=== PATIENT | male | born 1930 | race Caucasian/White ===

== ENCOUNTER 2018-07-20 09:58 | Inpatient (IN) | payer MEDICARE, OTHER ==
[2018-07-20] MEDS ORDERED: NS 0.9% 1000 ML** 1,000 ML IV ONE (10:09)
--- NOTE | 2018-07-20 10:11 | ED ---
Syncope/Near Syncope - HPI Summary HPI Summary: Patient is a 87 y/o M presenting to ED via EMS with complaints of syncopal episode, SOB this morning. Patient was at dining table with when he had sudden onset of SOB, patient had subsequent syncopal episode. had helped the patient to the ground. EMS was called, who states that they were told that the patient was unresponsive. Upon EMS arrival, patient was still minimally responsive with blue fingers and SPO2 74%. Pt placed on NRB at 15L oxygen. BP was 97/60, patient was given fluids. He was bradycardic with HR in 50s and EMS claims prolonged QT on 12 lead. In room, patient is now A&Ox3, endorses SOB, states that when he woke up this morning, he was feeling weak and gaseous. Recent cough is reported as well. No chest pain, no back pain, no abdominal pain is reported. No PMHx of cardiac disease, kidney problems or stroke. PMHx of gout and prostate cancer. He had chemotherapy 9-10 years ago, cancer is reported to be in remission. No FMHx of aneurysms or blood clots. NKDA. Patient went to [facility] for routine check- up recently and a new onset RBBB was noted. Patient is not on blood thinners. Fever, chills, erythema of eyes, sore throat, vomiting, nausea, dysuria, hematuria, myalgia, edema, rash and dizziness are not reported. On triage, pain is rated 0/10, nothing is noted to aggravate/alleviate Sx. Home medications and allergies are reviewed. - History Of Current Complaint Time Seen by Provider: 07/20/18 10:00 Hx Obtained From: Patient, EMS Onset/Duration: Sudden Onset, Still Present - SOB, Resolved - A&Ox3 at present Timing: Constant - SOB Context: Witnessed Activity At Onset: At Rest - sitting at dining table Aggravating Factor(s): Nothing Alleviating Factor(s): Nothing Associated Signs And Symptoms: Shortness Of Breath, Other - Patient endorses fatigue, recent cough, gassy. Fever, chills, erythema of eyes, sore throat, vomiting, nausea, dysuria, hematuria, myalgia, edema, rash and dizziness are not reported. - Allergies/Home Medications Allergies/Adverse Reactions: Allergies Allergy/AdvReac Type Severity Reaction Status Date / Time No Known Allergies Allergy Verified 07/20/18 10:09 Home Medications: Home Medications Allopurinol TAB* [Zyloprim 100 MG TAB*] 100 mg PO BID 07/20/18 [History Confirmed 07/20/18] Amoxicillin PO (*) [Amoxicillin 500 MG CAP*] 2,000 mg PO ONCE 07/20/18 [History Confirmed 07/20/18] Aspirin EC TAB* [Ecotrin EC Low Dose 81 MG*] 81 mg PO DAILY 07/20/18 [History Confirmed 07/20/18] Ergocalciferol (Vitamin D2) [Vitamin D2] 50,000 unit PO WEEKLY 07/20/18 [ History Confirmed 07/20/18] Finasteride TAB* [Proscar TAB*] 5 mg PO DAILY 07/20/18 [History Confirmed ] Tamsulosin CAP* [Flomax CAP*] 0.4 mg PO DAILY 07/20/18 [History Confirmed ] PMH/Surg Hx/FS Hx/Imm Hx Musculoskeletal History: Reports: Hx Gout Sensory History: Denies: Hx Legally Blind, Hx Deafness Opthamlomology History: Denies: Hx Legally Blind EENT History: Denies: Hx Deafness - Cancer History Cancer Type, Location and Year: prostate cancer Hx Chemotherapy: Yes - Family History Known Family History: Negative: Blood Disorder - no FMHx of blood clots, aneurysms - Social History Alcohol Use: Rare Substance Use Type: Reports: None Smoking Status (MU): Former Smoker Review of Systems Positive: Fatigue. Negative: Fever, Chills Negative: Erythema Negative: Sore Throat Negative: Chest Pain Positive: Shortness Of Breath, Cough Gastrointestinal: Other - POSITIVE - GASSEOUS Negative: Abdominal Pain, Vomiting, Nausea Negative: dysuria, hematuria Musculoskeletal: Other - NEGATIVE - BACK PAIN Negative: Myalgia, Edema Negative: Rash Neurological: Other - NEGATIVE - LIGHT-HEADEDNESS Positive: Syncope All Other Systems Reviewed And Are Negative: Yes Physical Exam - Summary Physical Exam Summary: Constitutional: Well-developed, Well-nourished, Alert. (-) Distressed Skin: Warm, Dry HENT: Normocephalic; Atraumatic Eyes: Conjunctiva normal Neck: Musculoskeletal ROM normal neck. (-) JVD, (-) Stridor, (-) Tracheal deviation Cardio: Rhythm regular, rate normal, Heart sounds normal; Intact distal pulses; The pedal pulses are 2+ and symmetric. Radial pulses are 2+ and symmetric. (-) Murmur Pulmonary/Chest wall: Effort normal. (-) Respiratory distress, (-) Wheezes, (-) Rales (+) right lower lung crackles, tachypneic. Abd: Soft, (-) epigastric tenderness, (-) Distension, (-) Guarding, (-) Rebound Musculoskeletal: (-) Edema Lymph: (-) Cervical adenopathy Neuro: Alert, Oriented x3, GCS 15 Psych: Mood and affect Normal Triage Information Reviewed: Yes Vital Signs On Initial Exam: Initial Vitals Temp Pulse Resp BP Pulse Ox 96.3 F 62 24 112/68 98 07/20/18 10:05 07/20/18 10:05 07/20/18 10:05 07/20/18 10:05 07/20/18 10:05 Vital Signs Reviewed: Yes Diagnostics - Laboratory Result Diagrams: 07/20/18 10:22 07/20/18 10:22 Lab Statement: Any lab studies that have been ordered have been reviewed, and results considered in the medical decision making process. - Radiology CHEST X-RAY Radiology Interpretation Completed By: Radiologist Summary of Radiographic Findings: IMPRESSION: NO ACTIVE CARDIOPULMONARY DISEASE. THIS REPORT WAS REVIEWED BY ED PHYSICIAN. - CT brain ct CT Interpretation Completed By: Radiologist Summary of CT Findings: BRAIN CT IMPRESSION: No intracranial mass or hemorrhage. Large arachnoid cyst in the posterior. fossa with age-appropriate atrophy. This report was reviewed by ED physician. cta chest/thorax CT Interpretation Completed By: Radiologist Summary of CT Findings: CTA CHEST/THORAX IMPRESSION: Multiple filling defects are noted in the lower lobe pulmonary arteries. extending into the segmental arteries as well as in the right upper lobe and peripheral. left upper lobe filling defects are noted consistent with large multiple pulmonary emboli. Ectasia of the ascending aorta is noted. This report was reviewed by ED physician. - EKG 1010 Cardiac Rate: NL - rate of 60 BPM EKG Rhythm: Sinus Rhythm Summary of EKG Findings: EKG showed sinus rhythm with rate of 60 BPM, TWI V4-V6 , no STEMI. Course/Dx Course Of Treatment: Patient is a 87 y/o M presenting to ED via EMS with complaints of syncopal episode, SOB this morning. Patient was at dining table with when he had sudden onset of SOB, patient had subsequent syncopal episode. had helped the patient to the ground. EMS was called, who states that they were told that the patient was unresponsive. Upon EMS arrival, patient was still minimally responsive with blue fingers and SPO2 74%. Pt placed on NRB at 15L oxygen. BP was 97/60, patient was given fluids. He was bradycardic with HR in 50s and EMS claims prolonged QT on 12 lead. In room, patient is now A&Ox3, endorses SOB, states that when he woke up this morning, he was feeling weak and gaseous. Recent cough is reported as well. No chest pain , no back pain, no abdominal pain is reported. No PMHx of cardiac disease, kidney problems or stroke. PMHx of gout and prostate cancer. He had chemotherapy 9-10 years ago, cancer is reported to be in remission. No FMHx of aneurysms or blood clots. NKDA. Patient went to [facility] for routine check- up recently and a new onset RBBB was noted. Patient is not on blood thinners. On physical exam, right lower lung crackles, tachypneic. EKG showed sinus rhythm with rate of 60 BPM, TWI V4-V6, no STEMI. Labs showed MCV 102, MCH 35, Plt Count 101, carbon dioxide 21, BUN 31, Creatinine 1.61, glucose 187, lactic acid 2.1, total bilirubin 2.6, AST 71, ALT 67, trop 0.03, BNP 393, total protein 5.9. During ED course, patient received fluids, heparin vial 5800 units IV, and Heparin Drip, 22026 units in 500 ml IV. CXR. IMPRESSION: NO ACTIVE CARDIOPULMONARY DISEASE. BRAIN CT IMPRESSION: No intracranial mass or hemorrhage. Large arachnoid cyst in the posterior. fossa with age-appropriate atrophy. CTA CHEST/THORAX IMPRESSION: Multiple filling defects are noted in the lower lobe pulmonary arteries. extending into the segmental arteries as well as in the right upper lobe and peripheral. left upper lobe filling defects are noted consistent with large multiple pulmonary emboli. Ectasia of the ascending aorta is noted. No right heart strain is suspected as there is no radiographic evidence of such. LOC is suspected to be hypoxia-related as patient's face was cyanotic per EMS. Patient's case was discussed with Dr. Crump, Dr. Crump accepts for admission. - Diagnoses Differential Diagnosis/HQI/PQRI: Positive: Myocardial Infarction, Pulmonary Embolism, Other - PNA, CHF, arrhythmia Provider Diagnoses: Pulmonary embolism - Physician Notifications Discussed Care of Patient With: Kimberly Crump Time Discussed With Above Provider: 11:47 Instructed by Provider To: Other - 1139 - Dr. Urrutia communicates results of CTA chest/thorax. 1147 - Patient's case was discussed with Dr. Crump, Dr. Crump accepts for admission. - Critical Care Time Critical Care Time: 30-74 min - 45 minutes Discharge - Sign-Out/Discharge Documenting (check all that apply): Patient Departure - admit - Discharge Plan Condition: Good Disposition: ADMITTED TO [facility] Referrals: Zenon Epperson MD [Primary Care Provider] - - Attestation Statements Document Initiated by Scribe: Yes Documenting Scribe: KERVIN CELAYA Provider For Whom Scribe is Documenting (Include Credential): JAHAIRA WHALEY MD Scribe Attestation: I, KERVIN CELAYA, scribed for JAHAIRA WHALEY MD on 07/20/18 at 1240. Status of Scribe Document: Ready
[2018-07-20 10:41] LABS: ABS Basophils 0 10^3/ul (0-0.2); ABS Eosinophils 0.2 10^3/ul (0-0.6); ABS Monocytes 0.4 10^3/ul (0-0.8); ABS Neutrophils 7.6 10^3/ul (1.5-7.7); ABS Nucleated RBC 0 10^3/ul; Eosinophil % 2.2 %; Hematocrit 42 % (42-52); Hemoglobin 14.4 g/dl (14.0-18.0); Lymphocyte % 10.5 %; Mean Corpuscular HGB Conc 34 g/dl (31-36); Mean Corpuscular Hemoglobin 35 pg (27-31); Mean Corpuscular Volume 102 fL (80-94); Mean Platelet Volume 10.1 fL (7.4-10.4); Nucleated Red Blood Cells % 0.1; Platelet Count 101 10^3/ul (150-450); Red Blood Count 4.11 10^6/ul (4.00-5.40); Red Cell Distribution Width 15 % (10.5-15); White Blood Count 9.1 10^3/ul (3.5-10.8)
[2018-07-20 11:00] LABS: Troponin I 0.03 ng/mL (<0.04)
[2018-07-20 11:04] LABS: Albumin 3.9 g/dL (3.2-5.2); BUN/Creatinine Ratio 19.3 (8-20); EGFR African American 49.6 (>60); Potassium 3.7 mmol/L (3.5-5.0); Total Bilirubin 2.6 mg/dL (0.2-1.0); Total Protein 5.9 g/dL (6.4-8.9)
[2018-07-20] MEDS ORDERED: Iodixanol* (CONTRAST) 320 MG/ML 100 ML SDV IV ONE (11:14)
[2018-07-20] MEDS: Heparin VIAL(*) 5000 UNITS/ML VIAL (FIVE THOUSAND) IV SCH (12:18)
[2018-07-20] MEDS: Heparin DRIP 25,000 UNITS(*) 25,000 UNITS/500 ML BAG IV SCH (12:20)
[2018-07-20 12:27] LABS: Activated Partial Thrombo Time 26.1 seconds (26.0-36.3); INR 1.02 (0.77-1.02)
[2018-07-20] MEDS ORDERED: Acetaminophen TAB* 325 MG PO PRN (12:58)
--- NOTE | 2018-07-20 15:17 | HP ---
HISTORY AND PHYSICAL: DATE OF ADMISSION: 07/20/18 TIME OF ADMISSION: 1:30 p.m. PRIMARY CARE PHYSICIAN: Dr. Jones in [place]. ONCOLOGIST: Dr. Phillips in [place]. MACHINES TECHNICIAN: Dr. Mahoney in [place]. UROLOGIST: Dr. Hayes in [place]. PLUSH WEAVER: Dr. Bryson in [place]. CHIEF COMPLAINT: Syncope. HISTORY OF PRESENT ILLNESS: This is an 87-year-old man with history of non- Hodgkin's lymphoma in remission and BPH who presents to the emergency department this morning after an episode of syncope at breakfast. He has little recollection of the series of events, so his , Stacy, helps provide the history. Mr. Murillo explains that he had been feeling short of breath and weak over the past several weeks and even months, but that it was inconsistent and often went away with rest, so he did not think much of that. Then, this morning, he noted that he was more short of breath when he woke up and when he got to the table this morning for breakfast, his reports that he had gotten up to get the orange juice out of the fridge and sat back down, and she was sitting beside him when she noticed that he started to lean over in his armchair and his eyes were closed and his mouth was open, and she tried to talk to him and he was not responding. She could not arouse him, so she called EMS, who instructed her to put him on the floor, which she lowered him to the ground and she estimates he was unconscious for approximately 5 to 10 minutes and she witnessed no shaking or seizure-like activity, no incontinence or tongue biting. EMS arrived and reported that his pulse ox was in the 70s, they put oxygen on and loaded him into the ambulance, at which point Mr. Murillo recalls waking up and feeling okay. He had no specific complaints at that time. In the emergency department, a CTA showed bilateral PE, so we were asked to evaluate for admission. PAST MEDICAL HISTORY: 1. BPH. 2. Non-Hodgkin's lymphoma in 2008 which is reportedly in remission. He underwent chemotherapy at that time. 3. 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 PAST SURGICAL HISTORY: He has history of 2 hip replacements and cataract surgery. HOME MEDICATIONS: 1. Amoxicillin p.r.n. dental visits. 2. Aspirin 81 mg daily, this is reportedly for prophylaxis. 3. Flomax 0.4 mg daily. 4. Allopurinol 100 mg b.i.d. 5. Vitamin D 50,000 units weekly. 6. Finasteride 5 mg daily. SOCIAL HISTORY: He lives in [place] with his . He exercises regularly at the [employer]. He smokes cigars occasionally. He drinks 1 alcoholic beverage per day. His healthcare proxy is his , Stacy. REVIEW OF SYSTEMS: He notes dyspnea on exertion and shortness of breath over the last month. No chest pain. He does note occasional lightheadedness with exertion. He denies melena, hematochezia, abdominal pain, headache. He always has blurry vision in his right eye due to a retinal artery occlusion, for which he is getting Avastin injections and this is unchanged. He denies any recent long trips. Their last trip was in May when they took a bus to [facility], which was approximately a [address]. He does have a history of non-Hodgkin's lymphoma, but reports that it is in remission and he sees oncology yearly for followup. He has history of BPH, but no other history of malignancy. PHYSICAL EXAMINATION GENERAL: Alert, elderly man in no distress. He occasionally purses his lips to breathe. VITAL SIGNS: Temperature 96.3, heart rate 62, respiratory rate 24, pulse ox 98 % on 2 L, blood pressure 112/68. HEENT: Pupils are equal, round, and reactive to light. Oral mucosa is moist with no pharyngeal exudates or erythema. NECK: JVP at 8 cm. No cervical or supraclavicular lymphadenopathy. CHEST: He is in a regular rate and rhythm. He does have a systolic murmur at the right upper sternal border. His PMI is nondisplaced. He has a port on the left chest wall. LUNGS: Clear bilaterally. ABDOMEN: Soft, nontender, nondistended. No guarding or rebound. EXTREMITIES: His hands are cool and discolored. He and his say this is baseline. His calves have no tenderness or swelling. His DP pulses are 2+ bilaterally. DIAGNOSTIC STUDIES/LAB DATA: White blood cells 9.1, hemoglobin 14.4, platelets 101. INR 1.02. Sodium 140, potassium 3.7, chloride 110, bicarb 21, BUN 31, creatinine 1.61 with no baseline, glucose 187, lactate 2.1. Total bilirubin 2.6 , AST 71, ALT 67. BNP 393, troponin 0.03. Imaging: A chest and thorax CTA shows multiple filling defects in the lower lobe pulmonary arteries extending into the segmental arteries as well as in the right upper lobe and peripheral left upper lobe, filling defects are noted consistent with large multiple pulmonary emboli. A brain CT shows no intracranial mass or hemorrhage with a large arachnoid cyst in the posterior fossa with age-appropriate atrophy. An EKG shows sinus bradycardia at 60 with left axis deviation. Q waves in III and aVF. T-wave inversions in V4, V5, and V6. Chest x-ray shows no active cardiopulmonary disease. ASSESSMENT AND PLAN: An 87-year-old man with history of remote non-Hodgkin's lymphoma in remission and benign prostatic hypertrophy who presents to the emergency department with an episode of syncope, was found to be hypoxic and have bilateral pulmonary embolisms. 1. Bilateral pulmonary embolisms. He has been started on a heparin drip in the emergency department, which I agree with and am continuing. He will have serial PTTs until a therapeutic anticoagulation is reached. I am checking a transthoracic echocardiogram to evaluate for right heart strain, trending his troponins to also evaluate severity of the pulmonary embolism. He is currently hemodynamically stable and has an oxygen requirement of only 2 L. The etiology of these pulmonary embolisms is the major question as he has history of lymphoma , but is reportedly in remission. I am requesting oncology records from [place]. He also says he has had a colonoscopy just a few years ago that was normal and he has never had abnormal colonoscopies. He does have history of benign prostatic hypertrophy, so I am adding on a PSA. He does not have any history of immobility and in fact, he is quite active. I am checking lower extremity Dopplers to evaluate for remaining burden of disease. We will have to see where his creatinine ends up as I am not sure if this is an acute kidney injury or chronic kidney disease before I re-choose an appropriate anticoagulant residential. I discussed bleeding risk with him and his and they understand the risk, which at this point is outweighed by the benefit of anticoagulating these bilateral pulmonary embolisms. 2. Syncope. The differential includes right heart failure versus hypoxia. I have a low suspicion for seizure given the description of the syncope. His oxygenation is now resolved and I am checking an echocardiogram to evaluate right heart strain. 3. Acute kidney injury versus chronic kidney disease. We will try to get records and see if this is acute or chronic. He is getting volume resuscitation given his syncope anyway and we will recheck his creatinine tomorrow. 4. Elevated LFTs. He has no GI symptoms and no history of hepatic disease. It is possible he had some hypotension related to syncope that is causing a mild elevation in his transaminases, or he may also be in right heart failure causing this elevation. He also has thrombocytopenia, so I will have a low threshold to check a right upper quadrant ultrasound. 5. Elevated glucose. He has no history of diabetes and I suspect this is related to a stress response, but I am adding on A1c. 6. Elevated lactate, likely related to syncope and poor tissue perfusion. Recheck in a few hours after volume resuscitation. 7. DVT prophylaxis. He is on therapeutic anticoagulation. 8. Diet. Regular unrestricted diet. 9. Activity. Bedrest. 10. Disposition. Admit to the ICU. [id number]/[facility] #: [id number] JULIAN
[2018-07-20] MEDS ORDERED: NS 0.9% 1000 ML** 1,000 ML IV SCH (18:30)
[2018-07-20] MEDS: Allopurinol TAB* 100 MG PO SCH (19:53)
[2018-07-21 05:21] LABS: Albumin 3.2 g/dL (3.2-5.2); BUN/Creatinine Ratio 23.7 (8-20); Calcium 7.4 mg/dL (8.6-10.3); EGFR African American 62.9 (>60); Globulin 1.6 g/dL (2-4); Indirect Bilirubin 1.5 mg/dL (0.3-1.0); Potassium 3.8 mmol/L (3.5-5.0); Total Bilirubin 1.8 mg/dL (0.2-1.0); Total Protein 4.8 g/dL (6.4-8.9)
[2018-07-21 05:25] LABS: ABS Basophils 0 10^3/ul (0-0.2); ABS Eosinophils 0.1 10^3/ul (0-0.6); ABS Lymphocytes 0.8 10^3/ul (1.0-4.8); ABS Monocytes 0.6 10^3/ul (0-0.8); ABS Neutrophils 4.3 10^3/ul (1.5-7.7); ABS Nucleated RBC 0 10^3/ul; Hematocrit 36 % (42-52); Hemoglobin 12.2 g/dl (14.0-18.0); Lymphocyte % 13.3 %; Mean Corpuscular HGB Conc 34 g/dl (31-36); Mean Corpuscular Hemoglobin 35 pg (27-31); Mean Corpuscular Volume 104 fL (80-94); Mean Platelet Volume 10.4 fL (7.4-10.4); Nucleated Red Blood Cells % 0; Platelet Count 93 10^3/ul (150-450); Red Blood Count 3.48 10^6/ul (4.00-5.40); Red Cell Distribution Width 15 % (10.5-15); White Blood Count 5.8 10^3/ul (3.5-10.8)
[2018-07-21] MEDS: Allopurinol TAB* 100 MG PO SCH ×2 (08:48→20:14)
[2018-07-21] MEDS: Finasteride TAB* 5 MG PO SCH (08:49)
[2018-07-21] MEDS ORDERED: Perflutren Lipid Microsphere* 3 ML VIAL ONE (09:38)
--- NOTE | 2018-07-21 12:39 | ECHO ---
Patient: ALONDRA SPARROW [facility] Rec#: [id number] : 1930 Date: 07/21/2018 Age: 87y Height: 183 cm / 72.0 in Weight: 77 kg / 169.7 lbs Sex: M BSA: 1.99 Room#: ICU 12 Admit Date#: 07/20/2018 Type: Inpatient Referring: Kimberly Crump MD Reading: Rika Campuzano MD Field Ring Assembler: Jina Martini,LITA,RDMS CC[facility] Tr[facility]ch[facility] Indication: PE BP: 116/79 HR: 52 Rhythm: NSR with PVCs Findings History: Non-Hodgkins lymphoma, chemotherapy, renal artery occlusion Technical Comments: The study quality is poor. The study is technically limited due to poor acoustic windows. Left Ventricle: The left ventricular chamber size is normal. Mild concentric left ventricular hypertrophy is observed. Basal interventricular septum shows moderate thickening. The estimated ejection fraction is 25-30%. globally. There is septal flattening of the interventricular septum consistent with right ventricular volume or pressure overload. The assessment of diastolic function is non-diagnostic. Left Atrium: The left atrium is moderately dilated. Right Ventricle: The right ventricle is moderately dilated. The right ventricular global systolic function is severely reduced. Right Atrium: The right atrium is moderately dilated. Aortic Valve: The aortic valve is trileaflet. The aortic valve leaflets are moderately thickened. There is mild to moderate aortic regurgitation. There is no evidence of aortic stenosis. Mitral Valve: There is mitral annular calcification. The mitral valve leaflets are mildly thickened. There is a trace of mitral regurgitation. There is no evidence of mitral stenosis. Tricuspid Valve: The tricuspid valve leaflets are normal. There is trace tricuspid regurgitation. There is evidence of borderline pulmonary hypertension. Pulmonic Valve: The pulmonic valve structure is not well visualized. There is no evidence of pulmonic regurgitation. Pericardium: There is no significant pericardial effusion. Aorta: There is moderate dilatation of the ascending aorta. There is no dilatation of the aortic arch. There is moderate dilatation of the aortic root. Pulmonary Artery: The main pulmonary artery is not well visualized. Venous: The inferior vena cava is not visualized. Contrast: Definity was used to optimize study. A total of 4 ml was used. Summary: There was not any prior study for comparison. Conclusions The left ventricular chamber size is normal. Mild concentric left ventricular hypertrophy is observed. Basal interventricular septum shows moderate thickening. The estimated ejection fraction is 25-30%. globally. There is septal flattening of the interventricular septum consistent with right ventricular volume or pressure overload. The assessment of diastolic function is non-diagnostic. The left atrium is moderately dilated. The right atrium is moderately dilated. There is mild to moderate aortic regurgitation. There is a trace of mitral regurgitation. There is trace tricuspid regurgitation. There is moderate dilatation of the ascending aorta. There is moderate dilatation of the aortic root. Measurements Name Value Normal Range RVIDd (AP) 2D 3.2 cm (0.9 - 2.6) RVDdMajor (2D) 4.8 cm (2.2 - 4.4) RAd ISD 4CH 5.6 cm (3.4 - 4.9) RA (A4C)W 5.2 cm (2.9 - 4.6) IVSd (2D) 1.5 cm (0.6 - 1) LVPWd (2D) 1 cm (0.6 - 1) LVIDd (2D) 4.5 cm (3.6 - 5.4) LVIDs (2D) 2.9 cm - LV FS (2D) 36 % (25 - 45) Aortic Annulus 2 cm (1.4 - 2.6) Ao root diameter (2D) 3.9 cm (2.1 - 3.5) Ascending Ao 3.9 cm (2.1 - 3.4) Aortic arch 3.1 cm (1.8 - 3.4) LA dimension (AP) 2D 4 cm (2.3 - 3.8) LAd ISD 4CH 6.1 cm (2.9 - 5.3) LA ISD 4CH W 5 cm (2.5 - 4.5) Name Value Normal Range MV E-wave Vmax 0.3 m/sec - MV deceleration time 250 msec - MV A-wave Vmax 1 m/sec - MV E:A ratio 0.3 ratio - LV septal e' Vmax 0.04 m/sec - LV lateral e' Vmax 0.03 m/sec - LV E:e' septal ratio 8 ratio - LV E:e' lateral ratio 10 ratio - Name Value Normal Range TR Vmax 2.5 m/sec - TR peak gradient 25 mmHg - RAP 8 mmHg - RVSP 33 mmHg - Name Value Normal Range PV Vmax 0.3 m/sec - PV peak gradient 0.4 mmHg -
--- NOTE | 2018-07-21 13:47 | PN ---
Hospitalist Progress Note Date of Service: 07/21/[address] Murillo's oncologist Dr. Phillips. I explained his case with DVTs/PEs and confirmed with her that his lymphoma is in remission as of March 2018, when she last saw him. She confirms this and has a low suspicion for recurrence but say she will see him soon after discharge and will address this with them and work him up for recurrence. She also reviewed his last TTE in April, which showed an ef of 55%
--- NOTE | 2018-07-21 18:06 | PN ---
Subjective Date of Service: 07/21/18 Interval History: Mr. Murillo is feeling "okay." He admits he got short of breath when he transferred from the bed from the ICU to the bed on the floor. He is not short of breath at rest, but I do note that he stops to catch his breath several times when he is talking. I spoke with his oncologist this morning--please see my prior note. His is here visiting. Objective Active Medications: Acetaminophen (Tylenol Tab*) 650 mg PO Q4H PRN PRN Reason: FEVER/PAIN Allopurinol (Zyloprim Tab*) 100 mg PO BID [facility] Last Admin: 07/21/18 08:48 Dose: 100 mg Ergocalciferol (Drisdol Cap*) 50,000 unit PO Th@0900 [facility] Finasteride (Proscar Tab*) 5 mg PO DAILY [facility] Last Admin: 07/21/18 08:49 Dose: 5 mg Heparin Sodium (Porcine) (Heparin Vial(*)) 0 units IV .PER PROTOCOL [facility]; Protocol Last Admin: 07/20/18 12:18 Dose: 5,800 units Heparin Sodium/Dextrose (Heparin Drip 25,000 Units(*)) 25,000 units in 500 mls @ 0 mls/hr IV PER RATE [facility]; Protocol Last Admin: 07/20/18 12:20 Dose: 28 mls/hr Lisinopril (Prinivil Tab*) 2.5 mg PO DAILY [facility] Metoprolol Tartrate (Lopressor Tab*) 12.5 mg PO DAILY [facility] Vital Signs - 8 hr 07/21/18 07/21/18 07/21/18 10:01 10:43 10:50 Temperature 97.2 F 97.2 F Pulse Rate 56 31 63 Respiratory 20 20 20 Rate Blood Pressure 122/79 134/74 134/74 (mmHg) O2 Sat by Pulse 92 100 100 Oximetry Oxygen Devices in Use Now: None Appearance: alert, occasionally gets short of breath with speaking, no distress Eyes: No Scleral Icterus Ears/Nose/Mouth/Throat: NL Teeth, Lips, Gums Neck: - - JVP 14cm Respiratory: Symmetrical Chest Expansion and Respiratory Effort, Clear to Auscultation Cardiovascular: - - systolic murmur RUSB Abdominal: NL Sounds; No Tenderness; No Distention Lymphatic: No Cervical Adenopathy Extremities: No Edema Skin: No Rash or Ulcers Neurological: Alert and Oriented x 3 Result Diagrams: 07/21/18 04:50 07/21/18 04:50 Microbiology and Other Data: Microbiology 07/20/18 10:22 Aerobic Blood Culture - Preliminary Blood Venous No Growth Day 1 Anaerobic Blood Culture - Preliminary No Growth Day 1 07/20/18 10:30 Aerobic Blood Culture - Preliminary Blood Venous No Growth Day 1 Anaerobic Blood Culture - Preliminary No Growth Day 1 07/20/18 15:20 Nasal Screen MRSA (PCR) - Final Nasal Mrsa Not Detected Assess/Plan/Problems-Billing Assessment: - Patient Problems (1) Pulmonary emboli Current Visit: Yes Status: Acute Code(s): I26.99 - OTHER PULMONARY EMBOLISM WITHOUT ACUTE COR PULMONALE SNOMED Code(s): 49453095 Comment: The etiology of this is most concerning for an occult lymphoma recurrence. I have discussed this with his oncologist and she will see him in follow up and arrange for further work up. continue heparin for now until a plan is decided upon for LV dysfunction--I wonder if he should have a LHC for eval. Onc recommends Lovenox upon discharge since malignancy-associated PE is a possibility (2) Cor pulmonale Current Visit: Yes Status: Acute Code(s): I27.81 - COR PULMONALE (CHRONIC) SNOMED Code(s): 84060288 Comment: stop IVF now (3) Acute systolic (congestive) heart failure Current Visit: Yes Status: Acute Code(s): I50.21 - ACUTE SYSTOLIC ( CONGESTIVE) HEART FAILURE SNOMED Code(s): 528022305 Comment: the etiology of this is unclear and I have consulted cardiology-- will likely need bb, BERT, statin, etc but will await their formal recommendation his ef was 55% in April may also need ischemic eval; appreciate cardiology input (4) Acute DVT (deep venous thrombosis) Current Visit: Yes Status: Acute Code(s): I82.409 - ACUTE EMBOLISM AND THOMBOS UNSP DEEP VN UNSP LOWER EXTREMITY SNOMED Code(s): 769740851343901 Comment: anticoagulation as above; again raises question of recurrence of malignancy (5) History of lymphoma Current Visit: Yes Status: Acute Code(s): Z85.79 - PRSNL HX OF MALIG NEOPLM OF LYMPHOID, HEMATPOETC & REL TISS SNOMED Code(s): 936572907 Comment: needs close onc follow up
[2018-07-21] MEDS: Lisinopril TAB* 5 MG PO SCH (18:40)
[2018-07-21] MEDS: Metoprolol Tartrate TAB* 25 MG PO SCH (18:40)
--- NOTE | 2018-07-21 19:46 | CONS ---
CC: Hospitalist Service; Dr. Campuzano; Dr. Epperson in [place]; Dr. Phillips in [place] * CARDIOLOGY CONSULT: DATE OF CONSULT: 07/21/18 HISTORY OF PRESENT ILLNESS: The patient is an 87-year-old male patient who was brought into the hospital after he had a syncopal episode while he was sitting having a breakfast yesterday morning. Further evaluation in the emergency room found him to have bilateral significant pulmonary embolism. He does have history of remote non-Hodgkin's lymphoma, in remission and had chemotherapy, then he followed up with Oncology, according to the patient, in [place]. He was started on IV heparin. An echocardiogram was ordered and done today that showed the patient had severely reduced left ventricular systolic function with an EF globally about 25% to 30%. He does have biatrial enlargement, mild to moderate aortic insufficiency, and moderate dilatation of the ascending aorta as well as of the aortic root. Because of his reduced left ventricular systolic function, Cardiology consult was further requested. The patient never had symptoms of chest pain. In speaking to the patient, he said he has been having shortness of breath on and off for about a month. He gives no nausea, no vomiting, no fever, no chills, no hematochezia, no skin rash, no abdominal pain, no previous history of syncope. He gives no history of congestive heart failure, no history of coronary artery disease in the past. Interestingly, his EKG showed Q-waves inferiorly with a possibility of silent inferior wall MT. 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 The patient was on heparin. He had minimal shortness of breath, but no chest pain. He gives no palpitations, no tachycardia, no orthopnea. No swelling in the lower extremities is appreciated. He does have, as I indicated, no history of diabetes mellitus, no history of hyperlipidemia, no history of systemic arterial hypertension. His review of all other system essentially is negative. PAST MEDICAL HISTORY: Include history of benign prostatic hypertrophy, history of non-Hodgkin's lymphoma in 2008. He had chemotherapy at that time, he is on remission. 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 PAST SURGICAL HISTORY: History of two hip replacements and cataract surgery. MEDICATIONS: Medications as an outpatient include: 1. Aspirin 81 mg daily. 2. Flomax 0.4 mg daily. 3. Allopurinol 100 mg twice a day. 4. Vitamin D 50,000 units weekly. 5. Finasteride 5 mg daily. His medications as an inpatient include: 1. Tylenol 650 mg p.o. q.4 hours p.r.n. 2. Allopurinol 100 mg twice a day. 3. He is on Proscar 5 mg daily. 4. He is on heparin IV drip. SOCIAL HISTORY: He lives with his . He does exercise regularly. He smokes cigar occasionally. No history of illicit drug use. REVIEW OF SYSTEMS: Review of all other systems essentially is negative. PHYSICAL EXAM: On exam, he is awake, alert, and oriented. He is not in acute distress. He had no symptoms of chest pain. Vitals: Blood pressure 134/74, his saturation is 100%, respiratory rate 20, pulse 63, he is in sinus rhythm, temperature 97.2. Head and Neck Exam: Normocephalic, atraumatic head. Ears, Nose, and Throat: Essentially benign. Neck: Supple. JVP is not elevated. No carotid bruit. No masses in the neck is appreciated. Chest: Clear to auscultation. No rales, no wheeze. No added sounds appreciated. Heart: Normal S1, S2. No added sounds, no gallops, no rubs. There is a grade 3/6 diastolic murmur in the left sternal border. Abdomen: Benign, soft. Positive bowel sounds. Extremities: No edema, no cyanosis, no clubbing. Skin exam is normal. Psych: Normal affect and mood. [employer] [place]: No focal deficits are appreciated. DIAGNOSTIC STUDIES/LAB DATA: His labs showed white blood cells 5.8, hemoglobin 12.2, hematocrit 36, platelets 93. He does have sodium of 140, potassium 3.8, chloride 116, total CO2 of 16, BUN 31, creatinine 1.31. Troponin 0.24. BNP is 393. His EKG done today showed sinus rhythm, sinus bradycardia, heart rate 60 beats per minute, nonspecific T abnormality, possibly Q-waves in leads III and aVF, rule out old inferior wall MT. IMPRESSION: The patient is an 87-year-old male with: 1. Presentation with progressive shortness of breath for a month and ruled in for significant bilateral pulmonary embolism. 2. Syncopal episode. 3. Bilateral deep venous thrombosis, acute, on the right side of the femoral and popliteal veins. 4. 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 He is not overtly in congestive heart failure. 5. Moderate aortic insufficiency. 6. Moderately dilated ascending aorta and aortic root. 7. Abnormal EKG as described, to rule out old inferior wall myocardial infarction. PLAN: I had a lengthy talk with the patient and hospital service about this patient. I agree with the heparin treatment you are already doing for his pulmonary embolism and DVT. He is not acutely in congestive heart failure. He had no symptoms of chest pain. I think monitoring him very closely will be important and initiating very low dose beta-barrett and BERT inhibitor for his cardiomyopathy and titrating up as tolerated based on his heart rate as well as his blood pressure. Any further recommendations will be pending his clinical outcome. His cardiomyopathy could be multi-factorial in nature including remote history of chemotherapy, his significant bilateral pulmonary embolism, idiopathic, viral illness, unlikely valvular as his aortic insufficiency is moderate, although cannot be completely ruled out or possible coronary artery disease. LifeVest as well will be discussed with the patient before discharge. He does followup with his primary care, Oncology, other medical care providers in [facility] which he expressed interest to follow up with Cardiology there or in [place] according to the patient. We will follow him closely with you. I answered all his concerns and questions up to his satisfaction. TIME SPENT: More than half of at least 60 to 65 plus minutes was in the education and counseling mode, [id number], explaining all of the above and answering all his concerns and questions up to satisfaction. Thank you very much for asking us to participate in the care of this patient. [id number]/[facility] #: [id number] JULIAN
[2018-07-22 04:16] LABS: ABS Basophils 0 10^3/ul (0-0.2); ABS Eosinophils 0.2 10^3/ul (0-0.6); ABS Lymphocytes 1.3 10^3/ul (1.0-4.8); ABS Monocytes 0.6 10^3/ul (0-0.8); ABS Neutrophils 4.6 10^3/ul (1.5-7.7); ABS Nucleated RBC 0 10^3/ul; Eosinophil % 3.2 %; Hematocrit 40 % (42-52); Hemoglobin 13.7 g/dl (14.0-18.0); Lymphocyte % 19.4 %; Mean Corpuscular HGB Conc 34 g/dl (31-36); Mean Corpuscular Hemoglobin 35 pg (27-31); Mean Corpuscular Volume 103 fL (80-94); Mean Platelet Volume 9.7 fL (7.4-10.4); Nucleated Red Blood Cells % 0; Platelet Count 106 10^3/ul (150-450); Red Cell Distribution Width 15 % (10.5-15); White Blood Count 6.7 10^3/ul (3.5-10.8)
[2018-07-22 04:32] LABS: Albumin 3.6 g/dL (3.2-5.2); Albumin/Globulin Ratio 1.8 (1-3); BUN/Creatinine Ratio 19.3 (8-20); Calcium 8.7 mg/dL (8.6-10.3); EGFR Non-African American 46.3 (>60); Indirect Bilirubin 1.2 mg/dL (0.3-1.0); Magnesium 1.9 mg/dL (1.9-2.7); Potassium 3.9 mmol/L (3.5-5.0); Total Bilirubin 1.5 mg/dL (0.2-1.0); Total Protein 5.6 g/dL (6.4-8.9)
[2018-07-22] MEDS: Heparin VIAL(*) 5000 UNITS/ML VIAL (FIVE THOUSAND) IV SCH (04:39)
[2018-07-22] MEDS: Lisinopril TAB* 5 MG PO SCH (08:16)
[2018-07-22] MEDS: Finasteride TAB* 5 MG PO SCH (08:17)
[2018-07-22] MEDS: Allopurinol TAB* 100 MG PO SCH ×2 (08:18→20:35)
[2018-07-22] MEDS: Metoprolol Tartrate TAB* 25 MG PO SCH (08:18)
[2018-07-22] MEDS: Heparin DRIP 25,000 UNITS(*) 25,000 UNITS/500 ML BAG IV SCH (17:54)
--- NOTE | 2018-07-22 20:24 | PN ---
Subjective Date of Service: 07/22/18 Interval History: Patient seen today , awake, alert no acute distress. ON room air. Currently remains on heparin drip. I explained to both patient and his that he will need to go home on lovenox SQ for his DVT and follow up with his oncologist outpatient for final recommendations and duration for his lovenox treatment. He denies any chest pain, SOB improving Past Medical History: Unchanged from Admission Objective Active Medications: Acetaminophen (Tylenol Tab*) 650 mg PO Q4H PRN PRN Reason: FEVER/PAIN Allopurinol (Zyloprim Tab*) 100 mg PO BID [facility] Last Admin: 07/22/18 08:18 Dose: 100 mg Ergocalciferol (Drisdol Cap*) 50,000 unit PO Th@0900 [facility] Finasteride (Proscar Tab*) 5 mg PO DAILY [facility] Last Admin: 07/22/18 08:17 Dose: 5 mg Heparin Sodium (Porcine) (Heparin Vial(*)) 0 units IV .PER PROTOCOL [facility]; Protocol Last Admin: 07/22/18 04:39 Dose: 5,800 units Heparin Sodium/Dextrose (Heparin Drip 25,000 Units(*)) 25,000 units in 500 mls @ 0 mls/hr IV PER RATE [facility]; Protocol Last Admin: 07/22/18 17:54 Dose: 18 mls/hr Lisinopril (Prinivil Tab*) 2.5 mg PO DAILY [facility] Last Admin: 07/22/18 08:16 Dose: 2.5 mg Metoprolol Tartrate (Lopressor Tab*) 12.5 mg PO DAILY [facility] Last Admin: 07/22/18 08:18 Dose: 12.5 mg Vital Signs - 8 hr 07/22/18 15:22 Temperature 97.6 F Pulse Rate 55 Respiratory 16 Rate Blood Pressure 152/76 (mmHg) O2 Sat by Pulse 99 Oximetry Oxygen Devices in Use Now: None Appearance: awake. alert. no distress Eyes: No Scleral Icterus, PERRLA Ears/Nose/Mouth/Throat: NL Teeth, Lips, Gums, Clear Oropharnyx Neck: NL Appearance and Movements; NL JVP, Trachea Midline Respiratory: Symmetrical Chest Expansion and Respiratory Effort, Clear to Auscultation Cardiovascular: NL Sounds; No Murmurs; No JVD, RRR Abdominal: NL Sounds; No Tenderness; No Distention Extremities: No Edema Skin: No Rash or Ulcers Neurological: Alert and Oriented x 3 Result Diagrams: 07/22/18 04:09 07/22/18 04:09 Microbiology and Other Data: Microbiology 07/20/18 10:22 Aerobic Blood Culture - Preliminary Blood Venous No Growth Day 1 Anaerobic Blood Culture - Preliminary No Growth Day 1 07/20/18 10:30 Aerobic Blood Culture - Preliminary Blood Venous No Growth Day 1 Anaerobic Blood Culture - Preliminary No Growth Day 1 07/20/18 15:20 Nasal Screen MRSA (PCR) - Final Nasal Mrsa Not Detected Assess/Plan/Problems-Billing Assessment: 87 y/o male admitted for bilateral DVT and PE on heparin drip also found to have decrease LV functions - Patient Problems (1) Acute DVT (deep venous thrombosis) Current Visit: Yes Status: Acute Code(s): I82.409 - ACUTE EMBOLISM AND THOMBOS UNSP DEEP VN UNSP LOWER EXTREMITY SNOMED Code(s): 833852930136137 Comment: - On heparin drip. Will transition to lovenox SQ bid. Will need to go home on lovenox - Again raises question of recurrence of malignancy . to follow up with oncologist outpatient (2) Acute systolic (congestive) heart failure Current Visit: Yes Status: Acute Code(s): I50.21 - ACUTE SYSTOLIC ( CONGESTIVE) HEART FAILURE SNOMED Code(s): 795037919 Comment: - The etiology of this is unclear his ef was 55% in April - Cardiology has been consulted, did not recommend further work up at this time. - Will likely need bb, BERT, statin, pending BP managment and stability in the setting of acute PE (3) History of lymphoma Current Visit: Yes Status: Acute Code(s): Z85.79 - PRSNL HX OF MALIG NEOPLM OF LYMPHOID, HEMATPOETC & REL TISS SNOMED Code(s): 736610711 Comment: - needs close onc follow up with his oncologist in the setting of DVT and PE (4) Pulmonary emboli Current Visit: Yes Status: Acute Code(s): I26.99 - OTHER PULMONARY EMBOLISM WITHOUT ACUTE COR PULMONALE SNOMED Code(s): 73104303 Comment: - The etiology of this is most concerning for an occult lymphoma recurrence. - It has been discussed this with his oncologist by my colleauge previously and and she will see him in follow up and arrange for further work up. - I will transition to lovenox as cardiology not planing for any procedure at this time. Onc recommends Lovenox upon discharge since malignancy-associated PE is a possibility
[2018-07-23] MEDS: Heparin VIAL(*) 5000 UNITS/ML VIAL (FIVE THOUSAND) IV SCH (00:33)
[2018-07-23 07:01] LABS: ABS Basophils 0 10^3/ul (0-0.2); ABS Eosinophils 0.3 10^3/ul (0-0.6); ABS Lymphocytes 1.5 10^3/ul (1.0-4.8); ABS Monocytes 0.5 10^3/ul (0-0.8); ABS Neutrophils 4.3 10^3/ul (1.5-7.7); ABS Nucleated RBC 0 10^3/ul; Eosinophil % 3.9 %; Hematocrit 38 % (42-52); Hemoglobin 13.3 g/dl (14.0-18.0); Lymphocyte % 22.9 %; Mean Corpuscular HGB Conc 35 g/dl (31-36); Mean Corpuscular Hemoglobin 35 pg (27-31); Mean Corpuscular Volume 102 fL (80-94); Mean Platelet Volume 10.6 fL (7.4-10.4); Nucleated Red Blood Cells % 0.1; Platelet Count 104 10^3/ul (150-450); Red Blood Count 3.76 10^6/ul (4.00-5.40); Red Cell Distribution Width 15 % (10.5-15); White Blood Count 6.5 10^3/ul (3.5-10.8)
[2018-07-23] MEDS: Enoxaparin(*) 80 MG/0.8 ML SYR SUBCUT SCH ×2 (08:22→20:30)
[2018-07-23] MEDS: Metoprolol Tartrate TAB* 25 MG PO SCH (08:26)
[2018-07-23] MEDS: Lisinopril TAB* 5 MG PO SCH (08:26)
[2018-07-23] MEDS: Allopurinol TAB* 100 MG PO SCH ×2 (08:26→20:28)
[2018-07-23] MEDS: Finasteride TAB* 5 MG PO SCH (08:26)
[2018-07-23] MEDS ORDERED: Ergocalciferol CAP* 50000 UNIT PO SCH (09:00)
--- NOTE | 2018-07-23 13:09 | PN ---
Subjective Date of Service: 07/23/18 Interval History: patient seen resting comfortably. Aware of cardiology recommendations and possible need for Life Vest. taking PO. he did take lovenox today. We still need to teach him or family for lovenox self injections Past Medical History: Unchanged from Admission Objective Active Medications: Acetaminophen (Tylenol Tab*) 650 mg PO Q4H PRN PRN Reason: FEVER/PAIN Allopurinol (Zyloprim Tab*) 100 mg PO BID [facility] Last Admin: 07/23/18 08:26 Dose: 100 mg Enoxaparin Sodium (Lovenox(*)) 80 mg SUBCUT Q12H [facility] Last Admin: 07/23/18 08:22 Dose: 80 mg Ergocalciferol (Drisdol Cap*) 50,000 unit PO Th@0900 [facility] Last Admin: 07/23/18 08:25 Dose: 50,000 unit Finasteride (Proscar Tab*) 5 mg PO DAILY [facility] Last Admin: 07/23/18 08:26 Dose: 5 mg Heparin Sodium (Porcine) (Heparin Flush Picc/Ml/Cvc(*)) 1 ml FLUSH 0600,1800 [facility]; Protocol Last Admin: 07/22/18 23:17 Dose: 1 ml Lisinopril (Prinivil Tab*) 2.5 mg PO DAILY [facility] Last Admin: 07/23/18 08:26 Dose: 2.5 mg Metoprolol Tartrate (Lopressor Tab*) 12.5 mg PO DAILY [facility] Last Admin: 07/23/18 08:26 Dose: 12.5 mg Vital Signs - 8 hr 07/23/18 08:00 Respiratory 18 Rate Oxygen Devices in Use Now: None Appearance: Awake, Alert. no fever no chills Eyes: No Scleral Icterus Ears/Nose/Mouth/Throat: NL Teeth, Lips, Gums, Mucous Membranes Moist Neck: NL Appearance and Movements; NL JVP Respiratory: Symmetrical Chest Expansion and Respiratory Effort, Clear to Auscultation Cardiovascular: NL Sounds; No Murmurs; No JVD, RRR Abdominal: NL Sounds; No Tenderness; No Distention Extremities: No Edema, No Clubbing, Cyanosis Skin: No Rash or Ulcers Neurological: Alert and Oriented x 3 Result Diagrams: 07/23/18 06:43 07/22/18 04:09 Microbiology and Other Data: Microbiology 07/20/18 10:22 Aerobic Blood Culture - Preliminary Blood Venous No Growth Day 1 Anaerobic Blood Culture - Preliminary No Growth Day 1 07/20/18 10:30 Aerobic Blood Culture - Preliminary Blood Venous No Growth Day 1 Anaerobic Blood Culture - Preliminary No Growth Day 1 07/20/18 15:20 Nasal Screen MRSA (PCR) - Final Nasal Mrsa Not Detected Assess/Plan/Problems-Billing Assessment: 87 y/o male admitted for bilateral DVT and PE on heparin drip also found to have decrease LV functions - Patient Problems (1) Pulmonary emboli Current Visit: Yes Status: Acute Code(s): I26.99 - OTHER PULMONARY EMBOLISM WITHOUT ACUTE COR PULMONALE SNOMED Code(s): 01392744 Comment: - off heparin drip now on lovenox SQ bid. Will need to go home on lovenox - Again raises question of recurrence of malignancy . to follow up with oncologist outpatient (2) Acute DVT (deep venous thrombosis) Current Visit: Yes Status: Acute Code(s): I82.409 - ACUTE EMBOLISM AND THOMBOS UNSP DEEP VN UNSP LOWER EXTREMITY SNOMED Code(s): 215035425666726 Comment: - off heparin drip now on lovenox SQ bid. Will need to go home on lovenox - Again raises question of recurrence of malignancy . to follow up with oncologist outpatient (3) Acute systolic (congestive) heart failure Current Visit: Yes Status: Acute Code(s): I50.21 - ACUTE SYSTOLIC ( CONGESTIVE) HEART FAILURE SNOMED Code(s): 467983140 Comment: - The etiology of this is unclear his ef was 55% in April - Cardiology has been consulted, did not recommend further work up at this time. - Will need bb, BERT, statin. BP low normal. already on Toprol 12.5 mg daily, lisinopril 2.5 daily. I will hold further implementation or titration of his medications to oupatient espescially in the setting of acute PE - discussed with cardiology Dr. Patterson and will revisit with patient for possible Life vest (4) History of lymphoma Current Visit: Yes Status: Acute Code(s): Z85.79 - PRSNL HX OF MALIG NEOPLM OF LYMPHOID, HEMATPOETC & REL TISS SNOMED Code(s): 242521448 Comment: - needs close onc follow up with his oncologist in the setting of DVT and PE
[2018-07-23] MEDS ORDERED: Alteplase (CATHFLO)* 2 MG/2 ML VIAL IV ONE (19:30)
[2018-07-23] MEDS ORDERED: Tamsulosin CAP* 0.4 MG PO SCH (21:00)
[2018-07-24 06:01] LABS: ABS Basophils 0 10^3/ul (0-0.2); ABS Eosinophils 0.2 10^3/ul (0-0.6); ABS Lymphocytes 0.9 10^3/ul (1.0-4.8); ABS Monocytes 0.4 10^3/ul (0-0.8); ABS Neutrophils 4.3 10^3/ul (1.5-7.7); ABS Nucleated RBC 0 10^3/ul; Eosinophil % 3.7 %; Hematocrit 35 % (42-52); Hemoglobin 11.9 g/dl (14.0-18.0); Lymphocyte % 16.1 %; Mean Corpuscular HGB Conc 34 g/dl (31-36); Mean Corpuscular Hemoglobin 35 pg (27-31); Mean Corpuscular Volume 102 fL (80-94); Mean Platelet Volume 10.7 fL (7.4-10.4); Nucleated Red Blood Cells % 0; Platelet Count 99 10^3/ul (150-450); Red Blood Count 3.42 10^6/ul (4.00-5.40); Red Cell Distribution Width 15 % (10.5-15); White Blood Count 5.9 10^3/ul (3.5-10.8)
[2018-07-24 06:13] LABS: EGFR African American 82.1 (>60); EGFR Non-African American 67.9 (>60)
[2018-07-24] MEDS: Metoprolol Tartrate TAB* 25 MG PO SCH (10:18)
[2018-07-24] MEDS: Lisinopril TAB* 5 MG PO SCH (10:18)
[2018-07-24] MEDS: Allopurinol TAB* 100 MG PO SCH (10:19)
[2018-07-24] MEDS: Finasteride TAB* 5 MG PO SCH (10:19)
[2018-07-24] MEDS: Enoxaparin(*) 80 MG/0.8 ML SYR SUBCUT SCH (10:21)
[2018-07-24 11:30] VITALS: BP 114/61
--- NOTE | 2018-07-24 20:10 | DS ---
CC: Dr. Zenon Jones; Dr. Yusef Lemons in [place], phone number [phone]; Dr. Phillips, Oncologist DISCHARGE SUMMARY: DATE OF ADMISSION: 07/20/18 DATE OF DISCHARGE: 07/24/18 FINAL DISCHARGE DIAGNOSES: 1. Pulmonary embolism, multiple in the right upper lobe and in the peripheral left upper lobe. 2. Acute deep vein thrombosis, occlusive, within the right mid and distal femoropopliteal vein with a chronic nonocclusive thrombus within the left common and popliteal femoral vein as well as the right common femoral vein. 3. Syncope presumed due to his pulmonary embolism and hypoxia versus cardiac arrhythmia. 4. Acute congestive heart failure, systolic, newly diagnosed. HOSPITAL COURSE: The patient presented to [facility] on 07/20/18 for syncopal episode, occurred on the morning of admission during breakfast where the patient does not recall any of the event, but he did verbalize on evaluation during the ER that there has been increased weakness for several months. At one time, he was told that his fingernails were bluish in coloration and he had outpatient echocardiogram in April and it was reported to my colleague and hospitalist by his oncologist that his ejection fraction back in April was adequately and fairly normal, reported EF of 55%. With that history, on presentation, the patient of course was placed on the telemonitor in the emergency room and he was placed on oxygen. His initial workup in the ER did reveal elevated BNP, elevated lactic acid at 2.1, BNP at 393 and the troponin of 0.[address] angiogram of the chest as discussed above with bilateral pulmonary embolism as well as DVT. The patient was admitted to the tele floor. Serial cardiac enzyme was obtained and it did peak at 0.25. Lactic acid was repeated after hydration and placed on anticoagulation, normalized to 0.7 and Cardiology consultation was obtained with Dr. Campuzano who recommended echocardiogram and it was obtained and his echocardiogram did reveal a significantly reduced left ventricle function 25% to 30%. Given the acute decline in the EF from April to June, the patient was revisited with Cardiology. Given the acute setting of pulmonary embolism at this time, they elected to treat him medically with initiation of BERT and beta barrett. He was started on lisinopril 2.5 mg, metoprolol 12.5 titrated up to b.i.d. as his blood pressure will allow and he was offered the LifeVest. Unfortunately, at this time, the patient declined, for which they did not agree for the LifeVest, they elected to wait to see his heavy line technician to allow further discussion regarding the LifeVest or not. Also given his pulmonary embolism and underlying history of lymphoma, it was elected to treat him with Lovenox due to the possibility of refractory response to oral anticoagulation if it was related to his cancer. The case was well discussed with the patient's oncologist who recommended the Lovenox treatment. Today, the patient was seen and evaluated after he declined the LifeVest. He was deemed stable for discharge with the following recommendation as below. PHYSICAL EXAMINATION: His physical exam today, vital signs are temperature 97.7 , pulse 56 to 58, respiratory rate 16, satting 100%, blood pressure 114/61. General: He is awake, alert, pleasant on room air. Head and Neck: Normocephalic, atraumatic, supple. Clear to auscultation. Cardiovascular: S1 and S2, regular rate and rhythm. Extremities: No pedal edema. DISCHARGE MEDICATIONS: 1. Tylenol 650 q.4 hours p.r.n. 2. Allopurinol 100 b.i.d. 3. Vitamin D 50,000 units weekly. 4. Finasteride 5 mg daily. 5. Flomax 0.4 daily. 6. Lovenox 80 mg subcu 12. He was given 2 weeks prescription until his appointment with Dr. Phillips, his oncologist, which is made on 08/04/18 at 12:30. 7. Lisinopril 2.5 daily. 8. Lopressor 12.5 b.i.d. DISCHARGE FOLLOWUP: 1. The patient to follow up with Dr. Yusef Lemons, heavy line technician, he has scheduled appointment on 07/30/18 at 10:[address] Phillips on 08/04/18 at 12:30 p.m. 3. PCP in 1 to 2 weeks. DISCHARGE INSTRUCTIONS: The patient to adhere to minimal activity. No driving until cleared by his heavy line technician. Take all medications as prescribed. INPATIENT DIAGNOSTIC STUDY: A 2D echo, ejection fraction reveals 25% to 30%, mild LVH, left atrium mildly dilated, moderate aortic regurgitation. CT scan of the chest reveals multiple filling defects in the lower lobe of the pulmonary arteries, extending into segmental artery as well as right upper lobe and peripheral left upper lobe filling defect consistent with large multiple emboli. His ultrasound shows acute occlusive deep vein thrombosis within the right mid and distal femoral and popliteal vein along with chronic nonocclusive thrombus in the left common and mid femoral vein, also within the right femoral vein. Total time spent on discharge 45 mins [id number]/[facility] #: [id number] [facility] HOSPITALDeborah
== END 2018-07-24 15:47 | disposition home or self-care (01) | DRG 175 ==
LOC: ED 09:58 → ICU 12:58 → MEDTELE 07-21 04:47
PROVIDERS: ADMIT Internal Medicine; ATTEND Internal Medicine
DX: I26.09 Other pulmonary embolism with acute cor pulmonale (principal); I50.21 Acute systolic (congestive) heart failure; H34.9 Unspecified retinal vascular occlusion; N17.9 Acute kidney failure, unspecified; I82.413 Acute embolism and thrombosis of femoral vein, bilateral; I82.433 Acute embolism and thrombosis of popliteal vein, bilateral; I42.9 Cardiomyopathy, unspecified; D69.6 Thrombocytopenia, unspecified; N40.0 Benign prostatic hyperplasia without lower urinary tract symptoms; R55 Syncope and collapse; R09.02 Hypoxemia; I77.819 Aortic ectasia, unspecified site; I08.0 Rheumatic disorders of both mitral and aortic valves; R73.9 Hyperglycemia, unspecified; Z96.649 Presence of unspecified artificial hip joint; Z85.72 Personal history of non-Hodgkin lymphomas; Z92.21 Personal history of antineoplastic chemotherapy; Z79.82 Long term (current) use of aspirin; Z79.899 Other long term (current) drug therapy; Z72.0 Tobacco use
CPT/HCPCS: 36415; 70450; 71045; 71275; 80048; 80053; 80076; 82565; 82803; 83605; 83615; 83735; 83880; 84153; 84484; 84520; 85025; 85060; 85610; 85730; 87040; 87641; 93005; 93306; 93970; 99285; A9270-GY; C8929; G0103; J1644; J1650; J2997; Q9967